=== PATIENT | female | born 1970 | race Caucasian/White ===

== ENCOUNTER → 2018-07-15 16:42 | Outpatient (CLI) | payer OTHER, SELFPAY | PROVIDERS: Visit Provider Physician Assistant | DX: N39.0 Urinary tract infection, site not specified (principal) | CPT/HCPCS: 87086 ==

== ENCOUNTER → 2018-07-16 07:15 | Outpatient (CLI) | payer OTHER, SELFPAY ==
[2018-07-16 07:43] LABS: Add Manual Diff / Slide Review NO; Basophils Percent Auto 1.1 % (0-2); Eosinophils Percent Auto 1.8 % (2-4); Hemoglobin 13.5 g/dL (12.0-16.0); Lymphocytes Percent Auto 28.3 % (25-40); Mean Corpuscular HGB Conc 33.9 % (30-36); Mean Corpuscular Hemoglobin 31.7 PG (26-34); Mean Corpuscular Volume 93.5 fL (80-100); Monocytes Percent Auto 11.1 % (3-14); Neutrophils Absolute Auto 3100 /uL (3000-5900); Neutrophils Percent Auto 57.7 % (50-75); Platelet Count 278 X10^3/uL (150-400); Red Blood Cell Count 4.27 X10^6/uL (4.0-5.2); Red Cell Distribution Width 13.6 % (11.6-14.8); White Blood Cell Count 5.3 X10^3/uL (4.5-11.0)
[2018-07-16 07:56] LABS: Alanine Aminotransferase 39 IU/L (9-52); Albumin 4.3 g/dL (3.5-5.0); Albumin Globulin Ratio 1.5 (1.0-2.8); Alkaline Phosphatase 80 U/L (38-126); Aspartate Aminotransferase 30 IU/L (14-36); Bilirubin Total 1.5 mg/dL (0.2-1.3); Blood Urea Nitrogen 12 mg/dL (7-17); Calcium 9.2 mg/dL (8.4-10.2); Carbon Dioxide 29 mmol/L (22-32); Chloride 102 mmol/L (98-107); Cholesterol 205 mg/dL (140-199); Estimated Glomerular Filt Rate > 60.0 mL/min (>60); Globulin 2.9 g/dL (1.7-4.1); Glucose 91 mg/dL (70-100); HDL Cholesterol 69 mg/dL (40-60); HEMOLYSIS < 15 (0-50); LDL Cholesterol Calculated 125 mg/dL (<100); Potassium 4.7 mmol/L (3.4-5.1); Sodium 139 mmol/L (137-145); Total Protein 7.2 g/dL (6.3-8.2); Triglycerides 53 mg/dL (35-150)
[2018-07-16 08:35] LABS: TSH w/ Reflex to FT4 2.55 uIU/mL (0.47-4.68)
== END ==
PROVIDERS: PCP Physician Assistant; Visit Provider Physician Assistant
DX: I10 Essential (primary) hypertension (principal)
CPT/HCPCS: 36415; 80053; 80061; 84443; 85025

== ENCOUNTER 2020-07-08 11:30 | Emergency (ER) | payer BC, SELFPAY ==
[2020-07-08 11:43] VITALS: BP 181/88; PULSE 100; RESP 14; TEMP 37; O2SAT 100; BMI 22.4
--- NOTE | 2020-07-08 11:48 | DI.RAD.S_ITS ---
PROCEDURE: XR CHEST 1V INDICATIONS: chest pain TECHNIQUE: One view of the chest was acquired. COMPARISON: None. FINDINGS: Surgical changes and devices: None. Lungs and pleura: Lungs are clear. No pleural effusions or pneumothorax. Mediastinum: Mediastinal contours appear normal. Heart size is normal. Bones and chest wall: No suspicious bony lesions. Mild levoconvex scoliotic curvature is noted. Overlying soft tissues appear unremarkable. IMPRESSION: No acute cardiopulmonary process is seen. Dictated by: José Luis Morin M.D. on 07/08/2020 at 11:16 Approved by: José Luis Morin M.D. on 07/08/2020 at 11:17
--- NOTE | 2020-07-08 12:14 | ED_ITS ---
HPI - Chest Pain General Chief Complaint: Chest Pain Stated Complaint: weakness,nausea, chest pressure Time Seen by Provider: 07/08/20 11:50 Source: patient Mode of arrival: Ambulatory Limitations: no limitations History of Present Illness HPI narrative: Patient is a 50-year-old female who presents with right-sided chest discomfort on going for the last 1-2 weeks. She says she notices it more in the morning she feels weak and nauseated in the morning as well. However when she gets up and starts moving she overall feels better. She denies any shortness of breath with exertion pain is not radiating she denies any cough or fever as well. MD complaint: chest pain Onset (ago): week(s) Duration: intermittent Related Data Allergies Allergy/AdvReac Type Severity Reaction Status Date / Time No Known Drug Allergies Allergy Verified 07/08/20 11:49 Review of Systems Review of Systems Narrative: GENERAL: Denies chills, fatigue, malaise, fever, sweats, travel HEENT: Denies sinus pain, ear pain, sore throat, difficulty swallowing, neck pain RESPIRATORY: Denies dyspnea, cough, wheezing, hemoptysis, sputum. CARDIOVASCULAR: See HPI GASTROINTESTINAL: Denies nausea, vomiting, abdominal pain, diarrhea, constipation, melena. : Denies dysuria, frequency, incontinence, hematuria, urinary retention, flank pain. MUSCULOSKELETAL: Denies weakness, joint pain, or bony pain SKIN: No rash, no erythema, no pruritus NEUROLOGIC: Denies weakness, dizziness, headache, numbness, change in speech, confusion PSYCHIATRIC: No concerning psychosocial issues. 12 point review of systems is negative except for those stated above and HPI Patient History Medical History Patient denies medical problems (Acute) Social History Smoking Status: Never smoker Smoking Status: Never smoker alcohol intake frequency: holidays/special occasions only Substance Use Type: does not use Exam Initial Vital Signs Initial Vital Signs: Vital Signs Temperature 98.6 F 07/08/20 11:43 Pulse Rate 100 H 07/08/20 11:43 Respiratory Rate 14 07/08/20 11:43 Blood Pressure 181/88 H 07/08/20 11:43 Pulse Oximetry 100 07/08/20 11:43 GENERAL: Well-appearing, well-nourished and in no acute distress. HEENT: Head atraumatic,EOMI, pupils reactive, face symmetric, moist mucous membranes CARDIOVASCULAR: Regular rate and rhythm without murmurs, rubs or gallops. RESPIRATORY: Breath sounds equal bilaterally, no wheezes rales or rhonchi. ABDOMEN: Soft, nontender. Normoactive bowel sounds all 4 quadrants. No guarding or rebound. EXTREMITIES: Normal range of motion, no clubbing or edema. Neurovascularly intact NEUROLOGICAL: Alert and oriented x4.Normal gait and speech. Cranial nerves II through XII grossly intact. SKIN: Warm, dry, no laceration, no petechiae, no rashes or lesions. Scores HEART Score Heart Score history: Slightly Suspicious Heart Score EKG: Normal Heart Score Age: 45-64 years old Heart Score risk factors: No known risk factors Heart Score troponin: < or = to normal limit Heart Score Total: 1 PERC Score Age greater than or equal to 50 years: No Heart rate greater than or equal to 100 bpm: Yes Room Air O2 Sat less than 95%: No Unilateral leg swelling: No Recent trauma or surgery: No Hemoptysis: No Prior PE or DVT: No Hormone Use: No Total PERC Score: 1 Course Orders Ordered: ED Orders 07/08/20 11:48 XR chest 1V Stat EKG-12 Lead Stat 07/08/20 12:14 Complete Blood Count AUTO DIFF Stat Comprehensive Metabolic Panel Stat D Dimer Stat Lipase Stat Partial Thromboplastin Time Stat Prothrombin Time INR Stat Troponin & CK Cardiac Panel Stat Vital Signs Vital signs: Vital Signs - 8 hr 07/08/20 11:43 Temperature 98.6 F Pulse Rate 100 H Respiratory Rate 14 Blood Pressure 181/88 H Pulse Oximetry 100 MDM - Chest Pain Lab Data Attestation: I reviewed the patient's lab results. Result diagrams: 07/08/20 12:14 07/08/20 12:14 Labs: Lab Results 07/08/20 07/08/20 07/08/20 Range/Units 12:14 12:14 12:14 WBC 6.5 (4.5-11.0) X10^3/uL RBC 4.15 (4.0-5.2) X10^6/uL Hgb 13.0 (12.0-16.0) g/dL Hct 38.9 (36-46) % MCV 93.9 (80-100) fL MCH 31.4 (26-34) PG MCHC 33.4 (30-36) % RDW 13.3 (11.6-14.8) % Plt Count 314 (150-400) X10^3/uL Neut % (Auto) 73.2 (50-75) % Lymph % (Auto) 16.9 L (25-40) % [place] % (Auto) 8.4 (3-14) % Eos % (Auto) 0.4 L (2-4) % Baso % (Auto) 1.1 (0-2) % Neut # (Auto) 4700 (8479-1848) /uL Lymph # (Auto) 1100 (8997-0179) /uL [place] # (Auto) 500 (0-900) /uL Eos # (Auto) 0 (0-450) /uL Baso # (Auto) 100 (0-100) /uL PT 13.2 H (10.1-12.7) SECONDS INR 1.2 (0.9-1.3) APTT 32 (26.4-36.2) SECONDS D-Dimer (<230) ng/mL Sodium 136 L (137-145) mmol/L Potassium 4.6 (3.4-5.1) mmol/L Chloride 106 (98-107) mmol/L Carbon Dioxide 20 L (22-32) mmol/L BUN 10 (7-17) mg/dL Creatinine 0.49 L (0.52-1.04) mg/dL Estimated GFR > 60.0 (>60) mL/min BUN/Creatinine Ratio 20.4 (6-22) Glucose 115 H (70-100) mg/dL Calcium 9.3 (8.4-10.2) mg/dL Total Bilirubin 1.2 (0.2-1.3) mg/dL AST 41 H (14-36) IU/L ALT 15 (<35) IU/L Alkaline Phosphatase 82 (38-126) U/L Total Creatine Kinase 69 (30-135) U/L CK-MB (CK-2) TNP CK-MB (CK-2) Rel Index TNP Troponin I < 0.012 (0.01-0.034) ng/mL Total Protein 7.6 (6.3-8.2) g/dL Albumin 4.2 (3.5-5.0) g/dL Globulin 3.4 (1.7-4.1) g/dL Albumin/Globulin Ratio 1.2 (1.0-2.8) Lipase 61 (23-300) U/L 07/08/20 Range/Units 12:14 WBC (4.5-11.0) X10^3/uL RBC (4.0-5.2) X10^6/uL Hgb (12.0-16.0) g/dL Hct (36-46) % MCV (80-100) fL MCH (26-34) PG MCHC (30-36) % RDW (11.6-14.8) % Plt Count (150-400) X10^3/uL Neut % (Auto) (50-75) % Lymph % (Auto) (25-40) % [place] % (Auto) (3-14) % Eos % (Auto) (2-4) % Baso % (Auto) (0-2) % Neut # (Auto) (0526-5916) /uL Lymph # (Auto) (1501-8063) /uL [place] # (Auto) (0-900) /uL Eos # (Auto) (0-450) /uL Baso # (Auto) (0-100) /uL PT (10.1-12.7) SECONDS INR (0.9-1.3) APTT (26.4-36.2) SECONDS D-Dimer < 200 (<230) ng/mL Sodium (137-145) mmol/L Potassium (3.4-5.1) mmol/L Chloride (98-107) mmol/L Carbon Dioxide (22-32) mmol/L BUN (7-17) mg/dL Creatinine (0.52-1.04) mg/dL Estimated GFR (>60) mL/min BUN/Creatinine Ratio (6-22) Glucose (70-100) mg/dL Calcium (8.4-10.2) mg/dL Total Bilirubin (0.2-1.3) mg/dL AST (14-36) IU/L ALT (<35) IU/L Alkaline Phosphatase (38-126) U/L Total Creatine Kinase (30-135) U/L CK-MB (CK-2) CK-MB (CK-2) Rel Index Troponin I (0.01-0.034) ng/mL Total Protein (6.3-8.2) g/dL Albumin (3.5-5.0) g/dL Globulin (1.7-4.1) g/dL Albumin/Globulin Ratio (1.0-2.8) Lipase (23-300) U/L Imaging Data Chest x-ray: Radiologist's Impression: PROCEDURE: XR CHEST 1V INDICATIONS: chest pain TECHNIQUE: One view of the chest was acquired. COMPARISON: None. FINDINGS: Surgical changes and devices: None. Lungs and pleura: Lungs are clear. No pleural effusions or pneumothorax. Mediastinum: Mediastinal contours appear normal. Heart size is normal. Bones and chest wall: No suspicious bony lesions. Mild levoconvex scoliotic curvature is noted. Overlying soft tissues appear unremarkable. IMPRESSION: No acute cardiopulmonary process is seen. Dictated by: José Luis Morin M.D. on 07/08/2020 at 11:16 Approved by: José Luis Morin M.D. on 07/08/2020 at 11:17 ECG Data Attestation: I personally reviewed and interpreted this ECG as follows: Prior ECG tracings: not available for review Interpretation: Normal sinus rhythm rate 89 p.r. interval 140 QRS [address] changes no T-wave inversions no priors to compare MDM Narrative Medical decision making narrative: Patient's pain is been ongoing for couple of weeks is actually better with exertion and worse in the mornings which is atypi manuel for cardiac pain. She has been set up with any primary care provider but does not have an appointment until September. I discussed with her warning signs and when to return to the ED at this time she low risk heart score and perc score and has a negative D-dimer. Discharge Plan Departure Patient Disposition: Home Clinical Impression: Atypical chest pain Discharge Date/Time: 07/08/20 13:07 Instructions: DI for Atypical Chest Pain Activity Restrictions/Additional Instructions: *You have been diagnosed with atypical chest *What to do: You may require further outpatient testing such as a stress test and/or echocardiogram however not indicated at this time *Continue to take medications as directed *Follow up with your primary care provider in 2-3 days *Return to ER if you should have worsening or changing chest pain increasing shortness of breath with exertion, or any new, worsening or concerning symptoms Referrals: Anel Pedersen PA-C [Primary Care Provider] -
[2020-07-08 12:23] LABS: Add Manual Diff / Slide Review NO; Basophils Absolute Auto 100 /uL (0-100); Basophils Percent Auto 1.1 % (0-2); Eosinophils Absolute Auto 0 /uL (0-450); Eosinophils Percent Auto 0.4 % (2-4); Hematocrit 38.9 % (36-46); Lymphocytes Absolute Auto 1100 /uL (1100-4500); Lymphocytes Percent Auto 16.9 % (25-40); Mean Corpuscular HGB Conc 33.4 % (30-36); Mean Corpuscular Hemoglobin 31.4 PG (26-34); Mean Corpuscular Volume 93.9 fL (80-100); Monocytes Absolute Auto 500 /uL (0-900); Monocytes Percent Auto 8.4 % (3-14); Neutrophils Absolute Auto 4700 /uL (1500-7000); Neutrophils Percent Auto 73.2 % (50-75); Platelet Count 314 X10^3/uL (150-400); Red Blood Cell Count 4.15 X10^6/uL (4.0-5.2); Red Cell Distribution Width 13.3 % (11.6-14.8); White Blood Cell Count 6.5 X10^3/uL (4.5-11.0)
[2020-07-08 12:33] LABS: INR 1.2 (0.9-1.3); Prothrombin Time 13.2 SECONDS (10.1-12.7)
[2020-07-08 12:36] LABS: PTT Partial Thromboplastin Tim 32 SECONDS (26.4-36.2)
[2020-07-08 12:37] LABS: Alanine Aminotransferase 15 IU/L (<35); Albumin 4.2 g/dL (3.5-5.0); Albumin Globulin Ratio 1.2 (1.0-2.8); Alkaline Phosphatase 82 U/L (38-126); Aspartate Aminotransferase 41 IU/L (14-36); BUN Creatinine Ratio 20.4 (6-22); Bilirubin Total 1.2 mg/dL (0.2-1.3); Blood Urea Nitrogen 10 mg/dL (7-17); Calcium 9.3 mg/dL (8.4-10.2); Carbon Dioxide 20 mmol/L (22-32); Chloride 106 mmol/L (98-107); Creatine Kinase 69 U/L (30-135); Estimated Glomerular Filt Rate > 60.0 mL/min (>60); Globulin 3.4 g/dL (1.7-4.1); Glucose 115 mg/dL (70-100); Lipase 61 U/L (23-300); Potassium 4.6 mmol/L (3.4-5.1); Sodium 136 mmol/L (137-145); Total Protein 7.6 g/dL (6.3-8.2)
[2020-07-08 12:53] LABS: D Dimer < 200 ng/mL (<230)
--- NOTE | 2020-07-08 13:08 | PC.NURSE ---
patient states that she has had anxiety since her first child was born 20 years ago and that she chooses not to take any medications for it. She sates that she has chest pressure and that makes her anxiety worse. She states that she is anxious about going to see doctors.
[2020-07-08 13:16] LABS: HEMOLYSIS 41 (0-50); Troponin I < 0.012 ng/mL (0.01-0.034)
== END 2020-07-08 13:07 | disposition home or self-care (01) ==
PROVIDERS: Emergency Provider Emergency Medicine; PCP Physician Assistant
DX: R07.89 Other chest pain (principal)
CPT/HCPCS: 36415; 71045; 80053; 82550; 83690; 84484; 85025; 85379; 85610; 85730; 93005; 99284

== ENCOUNTER → 2020-09-24 13:19 | Outpatient (CLI) | payer OTHER, SELFPAY ==
--- NOTE | 2020-09-24 13:20 | DI.MG.S_ITS ---
BILATERAL DIGITAL SCREENING MAMMOGRAM 3D/2D WITH CAD: 09/24/2020 CLINICAL: Routine screening. Baseline exam. No prior exams were available for comparison. The tissue of both breasts is heterogeneously dense. This may lower the sensitivity of mammography. Current study was also evaluated with a Computer Aided Detection (CAD) system. There are segmental calcifications in the right breast at 6 o'clock middle depth. No other significant masses, calcifications, or other findings are seen in either breast. IMPRESSION: INCOMPLETE: NEEDS ADDITIONAL IMAGING EVALUATION The segmental calcifications in the right breast are indeterminate. Mediolateral, magnification, and additional views are recommended. This exam was interpreted at Station ID: [id number]. NOTE: For mammograms, a report in lay terms will be sent to the patient. Approximately 15% of breast malignancies will not be visualized mammographically. In the management of a palpable breast mass, a negative mammogram must not discourage biopsy of a clinically suspicious lesion. Electronically Signed By: Jose Luis floyd/latrice:09/26/2020 09:21:53 letter sent: Additional Imaging Needed ACR BI-RADS Category 0: Incomplete 3340F
--- NOTE | 2020-10-19 13:11 | ONC.MSW ---
New Referral Called pt to confirm that we've received her referral. She states that she is choosing to go to [facility] at this time. 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 Polo and request that the referral and records be sent to [facility].
== END ==
PROVIDERS: PCP Nurse Practitioner Family; Referring Provider Nurse Practitioner Family; Visit Provider Nurse Practitioner Family
DX: Z12.31 Encounter for screening mammogram for malignant neoplasm of breast (principal)
CPT/HCPCS: 77063; 77067

== ENCOUNTER 2023-01-23 17:26 | Emergency (ER) | payer OTHER, SELFPAY ==
[2023-01-23 17:32] VITALS: BP 170/95; PULSE 89; RESP 18; TEMP 36.4; O2SAT 100; BMI 21.4
--- NOTE | 2023-01-23 17:39 | DI.RAD.S_ITS ---
PROCEDURE: XR CHEST 1V INDICATIONS: chest pain TECHNIQUE: One view of the chest was acquired. COMPARISON: [facility], CR, XR CHEST 1V, 07/08/2020, 12:08. FINDINGS: Lungs and pleura: Lungs are clear. No pleural effusions or pneumothorax. Mediastinum: Mediastinal contours appear normal. Heart size is normal. Bones and chest wall: No suspicious bony lesions. Overlying soft tissues appear unremarkable. IMPRESSION: No acute cardiopulmonary abnormality. Dictated by: Jose Luis Moon M.D. on 01/23/2023 at 18:29 Approved by: Jose Luis Moon M.D. on 01/23/2023 at 18:31
[2023-01-23 18:16] LABS: Add Manual Diff / Slide Review NO; Basophils Absolute Auto 0 /uL (0-100); Basophils Percent Auto 0.7 % (0-2); Eosinophils Absolute Auto 100 /uL (0-450); Eosinophils Percent Auto 1.9 % (2-4); Hematocrit 39.7 % (36-46); Hemoglobin 13.4 g/dL (12.0-16.0); Lymphocytes Absolute Auto 1700 /uL (1100-4500); Lymphocytes Percent Auto 26.1 % (25-40); Mean Corpuscular HGB Conc 33.8 % (30-36); Mean Corpuscular Volume 91.7 fL (80-100); Monocytes Absolute Auto 700 /uL (0-900); Monocytes Percent Auto 11.4 % (3-14); Neutrophils Absolute Auto 4000 /uL (1500-7000); Neutrophils Percent Auto 59.9 % (50-75); Platelet Count 260 X10^3/uL (150-400); Red Blood Cell Count 4.33 X10^6/uL (4.0-5.2); Red Cell Distribution Width 13.4 % (11.6-14.8); White Blood Cell Count 6.6 X10^3/uL (4.5-11.0)
[2023-01-23 18:28] LABS: Alanine Aminotransferase 21 IU/L (<35); Albumin 4.4 g/dL (3.5-5.0); Albumin Globulin Ratio 1.2 (1.0-2.8); Alkaline Phosphatase 109 U/L (38-126); Aspartate Aminotransferase 25 IU/L (14-36); BUN Creatinine Ratio 26.5 (6-22); Blood Urea Nitrogen 13 mg/dL (7-17); Carbon Dioxide 28 mmol/L (22-32); Chloride 102 mmol/L (98-107); Creatine Kinase 60 U/L (30-135); Estimated Glomerular Filt Rate > 60 mL/min (>60); Globulin 3.6 g/dL (1.7-4.1); Glucose 104 mg/dL (70-100); HEMOLYSIS < 15 (0-50); Lipase 63 U/L (23-300); Magnesium 1.9 mg/dL (1.6-2.3); Potassium 3.4 mmol/L (3.4-5.1); Sodium 139 mmol/L (137-145)
[2023-01-23 18:38] LABS: Troponin I < 0.012 ng/mL (0.01-0.034)
[2023-01-23 20:33] LABS: Creatine Kinase 55 U/L (30-135)
[2023-01-23 20:46] LABS: Troponin I < 0.012 ng/mL (0.01-0.034)
[2023-01-23 20:47] VITALS: BP 175/95; PULSE 94; O2SAT 99
--- NOTE | 2023-01-23 21:04 | ED.CHESTPAIN ---
HPI - Chest Pain General Chief Complaint: Chest Pain Stated Complaint: chest pains Time Seen by Provider: 01/23/23 18:05 Source: patient Mode of arrival: Ambulatory Limitations: no limitations History of Present Illness HPI narrative: Patient is a 52-year-old female who for the past several days has had intermittent chest discomfort and has had discomfort since early this afternoon. She went to her primary doctor. Had an EKG performed. Was found that she was in trigeminy with frequent PVCs. She has a history of PVCs. Is on metoprolol for this. She was sent to the emergency department for further evaluation of her chest discomfort and frequent PVCs. Patient denies shortness of breath. No nausea vomiting. No fevers. No radiation of the discomfort. Potentially worse with palpation of her chest but she can not be certain of this. She is never had a heart attack before. Has never had a stress test. No intervention prior to arrival. 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) Patient denies medical problems Varicose vein of leg (10/2020) Vision disorder Surgical History (Updated 09/08/20 @ 18:55 by Savannah Aly) Anesthesia History of section Family History (Updated 09/08/20 @ 18:57 by Savannah Aly) Father Hypertension Kidney stones Mother Hypertension Grandmother COPD (chronic obstructive pulmonary disease) Grandmother COPD (chronic obstructive pulmonary disease) Social History Smoking Status: Never smoker Smoking Status: Never smoker alcohol intake frequency: holidays/special occasions only Substance Use Type: does not use Exam Initial Vital Signs Initial Vital Signs: Vital Signs Temperature 97.6 F 01/23/23 17:32 Pulse Rate 89 01/23/23 17:32 Respiratory Rate 18 01/23/23 17:32 Blood Pressure 170/95 H 01/23/23 17:32 Pulse Oximetry 100 01/23/23 17:32 Oxygen Delivery Method 01/23/23 17:32 Const General: cooperative, comfortable and No ill appearing HENMT Head: normal to inspection and normocephalic Chest Chest: No crepitus and tenderness Resp Effort & Inspection: normal respiratory effort Auscultation: clear to auscultation bilaterally Cardio Rate: regular rate Rhythm: regular rhythm GI Inspection: normal to inspection Palpation: soft and No tender Skin General: no rashes or lesions noted Neuro General: patient alert, patient awake and moves all extremities Extrem General: capillary refill normal Scores HEART Score Heart Score history: Slightly Suspicious Heart Score EKG: Normal Heart Score Age: 45-64 years old Heart Score risk factors: 1-2 risk factors Heart Score troponin: < or = to normal limit Heart Score Total: 2 Course Orders Ordered: Discontinued Medications Aspirin (Aspirin 81 Mg Chew Tab) 324 mg PO NOW ONE Stop: 01/23/23 17:39 Vital Signs Vital signs: Vital Signs - 8 hr 01/23/23 17:32 01/23/23 20:47 Temperature 97.6 F Pulse Rate 89 94 H Respiratory Rate 18 Blood Pressure 170/95 H 175/95 H Pulse Oximetry 100 99 Oxygen Delivery Method Room Air Room Air MDM - Chest Pain Medical Records Data Attestation: I reviewed the patient's medical records. Lab Data Attestation: I reviewed the patient's lab results. 01/23/23 18:00 01/23/23 18:00 Labs: Lab Results 01/23/23 01/23/23 01/23/23 Range/Units 18:00 18:00 20:15 WBC 6.6 (4.5-11.0) X10^3/uL RBC 4.33 (4.0-5.2) X10^6/uL Hgb 13.4 (12.0-16.0) g/dL Hct 39.7 (36-46) % MCV 91.7 (80-100) fL MCH 31.0 (26-34) PG MCHC 33.8 (30-36) % RDW 13.4 (11.6-14.8) % Plt Count 260 (150-400) X10^3/uL Neut % (Auto) 59.9 (50-75) % Lymph % (Auto) 26.1 (25-40) % [place] % (Auto) 11.4 (3-14) % Eos % (Auto) 1.9 L (2-4) % Baso % (Auto) 0.7 (0-2) % Neut # (Auto) 4000 (5969-3793) /uL Lymph # (Auto) 1700 (8843-9422) /uL [place] # (Auto) 700 (0-900) /uL Eos # (Auto) 100 (0-450) /uL Baso # (Auto) 0 (0-100) /uL Sodium 139 (137-145) mmol/L Potassium 3.4 (3.4-5.1) mmol/L Chloride 102 (98-107) mmol/L Carbon Dioxide 28 (22-32) mmol/L BUN 13 (7-17) mg/dL Creatinine 0.49 L (0.52-1.04) mg/dL Estimated GFR > 60 (>60) mL/min BUN/Creatinine Ratio 26.5 H (6-22) Glucose 104 H (70-100) mg/dL Calcium 9.0 (8.4-10.2) mg/dL Magnesium 1.9 (1.6-2.3) mg/dL Total Bilirubin 1.0 (0.2-1.3) mg/dL AST 25 (14-36) IU/L ALT 21 (<35) IU/L Alkaline Phosphatase 109 (38-126) U/L Total Creatine Kinase 60 55 (30-135) U/L CK-MB (CK-2) TNP TNP CK-MB (CK-2) Rel Index TNP TNP Troponin I < 0.012 < 0.012 (0.01-0.034) ng/mL Total Protein 8.0 (6.3-8.2) g/dL Albumin 4.4 (3.5-5.0) g/dL Globulin 3.6 (1.7-4.1) g/dL Albumin/Globulin Ratio 1.2 (1.0-2.8) Lipase 63 (23-300) U/L Imaging Data Chest x-ray: Radiologist's Impression: PROCEDURE:? XR CHEST 1V ? INDICATIONS:? chest pain ? TECHNIQUE:? One view of the chest was acquired.? ? COMPARISON:? [facility], CR, XR CHEST 1V, 07/08/2020, 12:08. ? FINDINGS:? ? Lungs and pleura:? Lungs are clear.? No pleural effusions or pneumothorax.? ? Mediastinum:? Mediastinal contours appear normal.? Heart size is normal.? ? Bones and chest wall:? No suspicious bony lesions.? Overlying soft tissues appear unremarkable.? ? IMPRESSION:? No acute cardiopulmonary abnormality. ECG Data Attestation: I personally reviewed and interpreted this ECG as follows: Prior ECG tracings: available for review Interpretation: EKG from outside facility shows sinus rhythm with frequent PVCs in a trigeminy and bigeminy pattern. No ST T wave changes EKG from this facility Sinus rhythm Ventricular rate 86 Normal QRS Normal QTC No PVCs No ST T wave changes MDM Narrative Medical decision making narrative: Patient is a low risk heart score. Negative chest x-ray. Troponins negative x2. Has a unremarkable EKG however on the cardiac monitor technician she is having fairly frequent PVCs which she is on metoprolol for this. Patient does have some tenderness to palpation of the left side of her chest but is difficult for her to specific say that this is they discomfort that she is been having for the past couple days. Given her low risk heart score in her negative troponins in the length of time she is had symptoms and her presentation today will discharge patient home to have her contact her primary doctor for further risk stratification. Low suspicion for pneumonia. Low suspicion for PE. Patient was given return precautions. She expressed understanding and agreement. Discharge Plan Departure Patient Disposition: Home Clinical Impression: Atypical chest pain Instructions: DI for Atypical Chest Pain Activity Restrictions/Additional Instructions: I do recommend that you continue with the plan of making contact with a primary care doctor. Continue any medications as directed. Return to the emergency department for any new symptoms. Prescriptions: No Action No Known Home Medications Referrals: Ani Polo ARNP [Primary Care Provider] - Stand Alone Forms: Patient Portal/API
== END 2023-01-23 21:10 | disposition home or self-care (01) ==
PROVIDERS: Emergency Medicine; Emergency Provider Emergency Medicine; PCP Nurse Practitioner Family; Referring Provider Nurse Practitioner Family
DX: R07.89 Other chest pain (principal)
CPT/HCPCS: 36415; 71045; 80053; 82550; 83690; 83735; 84484; 85025; 93005; 99283; 99284

== ENCOUNTER → 2023-01-30 10:22 | Outpatient (CLI) | payer OTHER, SELFPAY ==
[2023-01-30 13:08] LABS: TSH w/ Reflex to FT4 1.05 uIU/mL (0.47-4.68)
== END ==
PROVIDERS: PCP Registered Nurse Diabetes Educator; Referring Provider Nurse Practitioner Family; Visit Provider Nurse Practitioner Family
DX: R07.89 Other chest pain (principal)
CPT/HCPCS: 36415; 83735; 84443

== ENCOUNTER → 2023-03-11 15:10 | Outpatient (CLI) | payer OTHER, SELFPAY ==
--- NOTE | 2023-03-11 15:12 | DI.NM.S_ITS ---
PROCEDURE: NM EXERCISE TREADMILL NON NUC COMPARISON: None INDICATIONS: Chest pain FINDINGS: Rest ECG sinus rhythm. Yves protocol 10:00, maximum heart rate 175 bpm (103% peak predicted), maximum blood pressure 180/98, 12.8 METS, BRAYAN -27%. Stress ECG sinus tachycardia, no ST segment changes or arrhythmia. The patient did not complain of exercise-induced chest discomfort. IMPRESSION: Low risk study. No evidence of exercise-induced ischemia or arrhythmia. Normal hemodynamic response. Very good exercise capacity. Dictated by: Milly Terrell D.O. on 03/12/2023 at 16:50 Approved by: Milly Terrell D.O. on 03/12/2023 at 16:51
== END ==
PROVIDERS: PCP Registered Nurse Diabetes Educator; Referring Provider Nurse Practitioner Family; Visit Provider Nurse Practitioner Family
DX: R07.89 Other chest pain (principal)
CPT/HCPCS: 93017

== ENCOUNTER 2025-02-08 16:07 | Emergency (ER) | payer OTHER, SELFPAY ==
[2025-02-08] VITALS (10 sets, daily range): BP systolic 124–177; BP diastolic 78–101; PULSE 69–91; RESP 16–18; TEMP 36.9; O2SAT 97–100; BMI 23.1
--- NOTE | 2025-02-08 16:18 | DI.RAD.S_ITS ---
PROCEDURE: XR CHEST 1V INDICATIONS: chest pain TECHNIQUE: One view of the chest was acquired. COMPARISON: [facility], CR, XR CHEST 1V, 01/23/2023, 17:37. FINDINGS: Surgical changes and devices: None. Lungs and pleura: Lungs are clear. No pleural effusions or pneumothorax. Mediastinum: Mediastinal contours appear normal. Heart size is normal. Bones and chest wall: No suspicious bony lesions. Overlying soft tissues appear unremarkable. IMPRESSION: No acute cardiopulmonary pathology. Dictated by: Vincent Martinez M.D. on 02/08/2025 at 16:29 Approved by: Vincent Martinez M.D. on 02/08/2025 at 16:30
--- NOTE | 2025-02-08 16:18 | EKG_ITS ---
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
[2025-02-08 17:39] LABS: Add Manual Diff / Slide Review NO; Basophils Absolute Auto 100 /uL (0-100); Eosinophils Absolute Auto 0 /uL (0-450); Eosinophils Percent Auto 0.5 % (2-4); Hemoglobin 13.6 g/dL (12.0-16.0); Lymphocytes Absolute Auto 1000 /uL (1100-4500); Lymphocytes Percent Auto 21.2 % (25-40); Mean Corpuscular HGB Conc 33.8 % (30-36); Mean Corpuscular Hemoglobin 31.1 PG (26-34); Monocytes Absolute Auto 500 /uL (0-900); Monocytes Percent Auto 10.8 % (3-14); Neutrophils Absolute Auto 3300 /uL (1500-7000); Neutrophils Percent Auto 66.5 % (50-75); Platelet Count 317 X10^3/uL (150-400); Red Blood Cell Count 4.35 X10^6/uL (4.0-5.2); Red Cell Distribution Width 13.9 % (11.6-14.8); White Blood Cell Count 4.9 X10^3/uL (4.5-11.0)
[2025-02-08 17:47] LABS: INR 1.1 (0.9-1.3); Prothrombin Time 12.2 SECONDS (9.4-12.5)
[2025-02-08 17:50] LABS: PTT Partial Thromboplastin Tim 38 SECONDS (25.1-36.5)
[2025-02-08 17:51] LABS: Alanine Aminotransferase 21 IU/L (<35); Albumin 4.5 g/dL (3.5-5.0); Albumin Globulin Ratio 1.3 (1.0-2.8); Alkaline Phosphatase 97 U/L (38-126); Aspartate Aminotransferase 30 IU/L (14-36); BUN Creatinine Ratio 20.4 (6-22); Blood Urea Nitrogen 11 mg/dL (7-17); Calcium 9.3 mg/dL (8.4-10.2); Carbon Dioxide 24 mmol/L (22-32); Chloride 107 mmol/L (98-107); Creatine Kinase 53 U/L (30-135); Estimated Glomerular Filt Rate > 60 mL/min (>60); Globulin 3.5 g/dL (1.7-4.1); Glucose 96 mg/dL (70-100); HEMOLYSIS 30 (0-50); Lipase 48 U/L (23-300); Magnesium 1.9 mg/dL (1.6-2.3); Potassium 3.7 mmol/L (3.4-5.1); Sodium 140 mmol/L (137-145)
[2025-02-08 18:03] LABS: NT-proBNP (BNP-Adult 18+) 64 pg/mL (<125); Troponin I < 0.012 ng/mL (0.01-0.034)
--- NOTE | 2025-02-08 18:14 | EKG_ITS ---
[address] [address] Test Date: 2025-02-08 Pat Name: Karen Lopez Department: [facility] Room: Gender: Female Gr[employer] 1 [employer] 5 Teacher: MIGUE : 1970 Requested By: Order Number: [id number] Reading MD: Quintin Bellamy Measurements Intervals [place] Rate: 69 P: 56 [place]: 154 QRS: 57 QRSD: 82 T: 51 QT: 400 QTc: 428 Interpretive Statements Normal sinus rhythm Electronically Signed On 02-09-2025 14:36:11 PDT by Quintin Bellamy
--- NOTE | 2025-02-08 19:42 | ED.GENADULT ---
HPI - General Adult General Chief complaint: Hypertension Stated complaint: HBP, sore chest and pain behind RT eye. Time Seen by Provider: 02/08/25 19:38 Source: patient, RN notes reviewed and old records reviewed Mode of arrival: Ambulatory Limitations: no limitations History of Present Illness HPI narrative: [age] year female with history of breast cancer treated with mastectoy presents with complaint by of chest soreness as well as a little bit of discomfort headache behind the right eye and concern for hypertension. Patient states she has had symptoms for about 5 days. States no changes to her vision, states her eyes not painful, she has not had any crusting or changes such as redness or pain with movement. Notes little bit of chest discomfort no shortness of breath. No nausea or vomiting. No syncope. No diaphoresis. No fevers or chills. No GI or urinary symptoms. No new swelling in extremities. States she has not similar discomfort in the past been seen in the emergency department before. Does not take any daily prescription medications. Does have a history of breast cancer had mastectomy without any chemo or radiation. No known drug allergies. No regular tobacco, 1 alcoholic drink weekly, no recreational drugs. Follows with Dr. Reardon for Ophthalmology. She does have a primary care physician. States she called her physician's office to set up follow up and was told to come to the ED. 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 HEENT: Atraumatic, pupils are equal round reactive to light, extraocular movements are intact, nares are clear, there is no conjunctival pallor. Throat is clear without any exudates, erythema, tonsillar enlargement or uvular deviation HEART: Regular rate and rhythm without murmur, clicks, rubs. LUNGS:Lungs clear to auscultation, no wheezes, rales, crackles, chest moves symmetrically ABD:bowel sounds normal, soft, non-tender, no guarding, rebound, rigidity, no masses noted, no hepatosplenomegaly MSCL: Non-tender, no muscle atrophy, muscles strength 5/5 upper and lower extremities, full range of motion, normal gait NEURO:CN 2-12 intact, sensation normal. SKIN: No rash, erythema or other skin changes noted Initial Vital Signs Initial Vital Signs: Vital Signs Temperature 98.5 F 02/08/25 16:12 Pulse Rate 91 H 02/08/25 16:12 Respiratory Rate 18 02/08/25 16:12 Blood Pressure 177/101 H 02/08/25 16:12 Pulse Oximetry 100 02/08/25 16:12 Oxygen Delivery Method Room Air 02/08/25 16:12 Scores HEART Score Heart Score history: Moderately Suspicious Heart Score EKG: Non-Specific repolarization disturbance Heart Score Age: 45-64 years old Heart Score risk factors: No known risk factors Heart Score troponin: < or = to normal limit Heart Score Total: 3 Course Orders Ordered: ED Orders 02/08/25 17:30 Complete Blood Count AUTO DIFF Stat Comprehensive Metabolic Panel Stat Lipase Stat Magnesium Stat NT-proBNP (BNP-Adult 18+) Stat PTT Partial Thromboplastin [place] Stat Prothrombin Time INR Stat Troponin & CK Cardiac Panel Stat 02/08/25 18:14 EKG-12 Lead Stat 02/08/25 19:25 Trop I [Troponin I] Stat Discontinued Medications Aspirin (Aspirin 81 Mg Chew Tab) 324 mg PO NOW ONE Stop: 02/08/25 16:19 Last Admin: 02/08/25 20:21 Dose: Not Given Documented By: YINA Vital Signs Vital signs: Vital Signs - 8 hr 02/08/25 18:09 02/08/25 18:21 02/08/25 18:22 Pulse Rate 85 78 Respiratory Rate Blood Pressure 124/82 Pulse Oximetry 97 99 02/08/25 18:22 02/08/25 18:30 02/08/25 18:31 Pulse Rate 73 Respiratory Rate Blood Pressure 175/94 H 154/92 H Pulse Oximetry 100 02/08/25 18:31 02/08/25 19:00 02/08/25 19:01 Pulse Rate 76 69 74 Respiratory Rate 16 Blood Pressure Pulse Oximetry 100 100 100 02/08/25 19:01 02/08/25 19:30 02/08/25 19:31 Pulse Rate 85 Respiratory Rate Blood Pressure 133/78 168/78 H Pulse Oximetry 100 02/08/25 19:31 Pulse Rate 82 Respiratory Rate Blood Pressure Pulse Oximetry 100 Medical Decision Making Lab Data 02/08/25 17:30 02/08/25 17:30 Labs: Lab Results 02/08/25 02/08/25 Range/Units 17:30 19:25 WBC 4.9 (4.5-11.0) X10^3/uL RBC 4.35 (4.0-5.2) X10^6/uL Hgb 13.6 (12.0-16.0) g/dL Hct 40.0 (36-46) % MCV 92.0 (80-100) fL MCH 31.1 (26-34) PG MCHC 33.8 (30-36) % RDW 13.9 (11.6-14.8) % Plt Count 317 (150-400) X10^3/uL Neut % (Auto) 66.5 (50-75) % Lymph % (Auto) 21.2 L (25-40) % Sullivan % (Auto) 10.8 (3-14) % Eos % (Auto) 0.5 L (2-4) % Baso % (Auto) 1.0 (0-2) % Neut # (Auto) 3300 (4707-1053) /uL Lymph # (Auto) 1000 L (3182-9919) /uL Sullivan # (Auto) 500 (0-900) /uL Eos # (Auto) 0 (0-450) /uL Baso # (Auto) 100 (0-100) /uL PT 12.2 (9.4-12.5) SECONDS INR 1.1 (0.9-1.3) APTT 38 H (25.1-36.5) SECONDS Sodium 140 (137-145) mmol/L Potassium 3.7 (3.4-5.1) mmol/L Chloride 107 (98-107) mmol/L Carbon Dioxide 24 (22-32) mmol/L BUN 11 (7-17) mg/dL Creatinine 0.54 (0.52-1.04) mg/dL Estimated GFR > 60 (>60) mL/min BUN/Creatinine Ratio 20.4 (6-22) Glucose 96 (70-100) mg/dL Calcium 9.3 (8.4-10.2) mg/dL Magnesium 1.9 (1.6-2.3) mg/dL Total Bilirubin 1.0 (0.2-1.3) mg/dL AST 30 (14-36) IU/L ALT 21 (<35) IU/L Alkaline Phosphatase 97 (38-126) U/L Total Creatine Kinase 53 (30-135) U/L Troponin I < 0.012 < 0.012 (0.01-0.034) ng/mL NT-Pro-B Natriuret Pep 64 (<125) pg/mL Total Protein 8.0 (6.3-8.2) g/dL Albumin 4.5 (3.5-5.0) g/dL Globulin 3.5 (1.7-4.1) g/dL Albumin/Globulin Ratio 1.3 (1.0-2.8) Lipase 48 (23-300) U/L ECG Data Interpretation: EKG 1. Shows sinus rhythm rate of 76 CO 150 QRS 88 QTC of 394 nonspecific change. EKG 2 to shows sinus rhythm rate of 69 CO 154 QRS 82 QTC of [address] elevation depression noted. [facility] Narrative Medical decision making narrative: Labs show normal CBC except for low lymphocytes, PTT is 38 INR is 1.1, electrolytes are normal, BUN creatinine normal glucose is 96 LFTs are negative troponins less than 0.012 with a BNP is 64. Repeat troponin is less than 0.012 EKG shows sinus rhythm, nonspecific change. Chest x-ray shows no acute change. Visual acuity is 2020 bilaterally, 20/15 on the left and 20/20 on the right. Heart score of 3. Patient was concerned about hypertensive blood pressure is not normalized but has not improved here in the department. Discussed for patient to continue to monitor and follow up. [place] appropriate for discharge home with outpatient follow up. Discharge Plan Departure Patient Disposition: Home Clinical Impression: Chest pain Instructions: DI for Chest Pain Activity Restrictions/Additional Instructions: Please continue to monitor blood pressure at home if elevated please follow up with your primary care physician. If you are having any persistent eye discomfort please follow up with Ophthalmology. Please return for new or worsening symptoms severe eye pain, severe headaches, nausea vomiting, sudden loss or changes to vision, new chest pain, shortness of breath, new swelling of your extremities, lightheadedness or passing out or other new or concerning changes. Prescriptions: No Action No Known Home Medications Referrals: Vito Doll ARNP [Primary Care Provider] - Stand Alone Forms: Patient Portal/API/Survey
[2025-02-08 20:02] LABS: Troponin I < 0.012 ng/mL (0.01-0.034)
== END 2025-02-08 20:22 | disposition home or self-care (01) ==
PROVIDERS: Emergency Medicine; Emergency Provider Emergency Medicine; PCP Registered Nurse Diabetes Educator
DX: R07.9 Chest pain, unspecified (principal); R51.9 Headache, unspecified; R03.0 Elevated blood-pressure reading, without diagnosis of hypertension; Z85.3 Personal history of malignant neoplasm of breast
CPT/HCPCS: 71045; 80053; 82550; 83690; 83735; 83880; 84484; 85025; 85610; 85730; 93005; 99283; 99284

== ENCOUNTER → 2025-03-27 09:41 | Outpatient (CLI) | payer OTHER, SELFPAY ==
[2025-03-27 11:41] LABS: Cholesterol 220 mg/dL (140-199); HDL Cholesterol 76 mg/dL (40-60); LDL Cholesterol Calculated 134 mg/dL (<100); Triglycerides 49 mg/dL (35-150)
== END ==
LOC: LAB 09:43
PROVIDERS: PCP Registered Nurse Diabetes Educator; Referring Provider Physician Assistant; Visit Provider Physician Assistant
DX: I10 Essential (primary) hypertension (principal)
CPT/HCPCS: 36415; 80061

== ENCOUNTER → 2025-04-09 17:13 | Outpatient (CLI) | payer OTHER, SELFPAY ==
--- NOTE | 2025-04-09 17:15 | DI.MRI.S_ITS ---
PROCEDURE: MR HEAD/BRAIN WO CON INDICATIONS: Head pressure; dizziness; weakness; nausea TECHNIQUE: Noncontrast axial T1 spin echo, axial T2 fast spin echo, sagittal and axial FLAIR, coronal T2 fast spin echo, axial gradient echo, axial diffusion and ADC through the brain. COMPARISON: None. FINDINGS: Image quality: Excellent. CSF Spaces: Basal cisterns are patent. No extra-axial fluid collections. Ventricles are normal in size and shape. Brain: No intracranial masses or hemorrhage. Mccoy/white matter interface is normal. Brainstem appears normal. Diffusion-weighted images demonstrate no acute infarct. No chronic ischemic insults. Normal intravascular flow voids are present. The pituitary gland appears normal, without abnormal flattening along the floor of the sella turcica. Skull and face: Calvarium has normal marrow signal. Orbits appear normal. No abnormal fluid can be seen along the optic nerves. No abnormal flattening of the posterior globes can be seen. Sinuses: Focal [id number] mucosal thickening can be seen within the left maxillary sinus. Sinuses and mastoids are otherwise clear. IMPRESSION: Unremarkable intracranial study. No findings increased intracranial pressure can be seen. To the limits of this noncontrast study, no findings of intracranial masses or mass effect can be seen. Dictated by: José Luis Morin M.D. on 04/09/2025 at 18:05 Approved by: José Luis Morin M.D. on 04/09/2025 at 18:07
== END ==
PROVIDERS: PCP Registered Nurse Diabetes Educator; Referring Provider Physician Assistant; Visit Provider Physician Assistant
DX: R51.9 Headache, unspecified (principal); R42 Dizziness and giddiness; R11.0 Nausea; R53.1 Weakness; R53.83 Other fatigue; Z85.3 Personal history of malignant neoplasm of breast
CPT/HCPCS: 70551

== ENCOUNTER → 2025-10-19 17:22 | Outpatient (CLI) | payer OTHER, SELFPAY ==
--- NOTE | 2025-10-19 17:23 | DI.RAD.S_ITS ---
PROCEDURE: XR HUMERUS LT 2V INDICATIONS: eval L shoulder/arm pain 3 months, hx breast CA TECHNIQUE: 2 views of the humerus were acquired. COMPARISON: None. FINDINGS: Bones: No fractures or dislocations. No suspicious bony lesions. Acromioclavicular and glenohumeral joint arthritis noted. Soft tissues: No suspicious soft tissue calcifications. IMPRESSION: No acute bony abnormality. Comparison: 02/08/2025. Dictated by: Stephanie Bellamy M.D. on 10/20/2025 at 18:30 Approved by: Stephanie Bellamy M.D. on 10/20/2025 at 18:31
--- NOTE | 2025-10-19 17:23 | DI.RAD.S_ITS ---
PROCEDURE: XR SHOULDER LT MIN 2V INDICATIONS: eval L shoulder/arm pain 3 months, hx breast CA TECHNIQUE: 3 views of the shoulder were acquired. COMPARISON: [facility], CR, XR HUMERUS LT 2V, 10/19/2025, 17:31. FINDINGS: Bones: No fractures or dislocations. No suspicious bony lesions. Visualized ribs appear intact. Moderate acromioclavicular and mild glenohumeral joint space narrowing. Soft tissues: No suspicious soft tissue calcifications. IMPRESSION: Acromioclavicular and glenohumeral joint arthritis. No acute bony abnormality. Dictated by: Stephanie Bellamy M.D. on 10/20/2025 at 18:27 Approved by: Stephanie Bellamy M.D. on 10/20/2025 at 18:30
== END ==
PROVIDERS: PCP Registered Nurse Diabetes Educator; Referring Provider Registered Nurse Diabetes Educator; Visit Provider Registered Nurse Diabetes Educator
DX: M19.012 Primary osteoarthritis, left shoulder (principal); M25.512 Pain in left shoulder; M79.602 Pain in left arm
CPT/HCPCS: 73030; 73060